=== PATIENT | male | born 1985 | race Caucasian/White ===

== ENCOUNTER 2022-05-13 04:43 | Emergency (ER) | payer SELFPAY ==
[~2022-05-13] VITALS: Ht 175.3 cm; Wt 93.0 kg
--- NOTE | 2022-05-13 05:11 | NUR ---
pt in room 4b c/o wound to forehead.
[2022-05-13] MEDS ORDERED: ACETAMINOPHEN 325 MG TABLET ONE (05:33)
[2022-05-13] MEDS ORDERED: IBUP-1955 PO (05:39)
--- NOTE | 2022-05-13 05:43 | NUR ---
Patient discharged to home in stable condition. Written and verbal after care instructions given. Patient verbalizes understanding of instructions. Stressed follow up or return to ER for worsening s/s.
[2022-05-13] MEDS ORDERED: ACETAMINOPHEN 325 MG TABLET PO ONE (05:45)
[2022-05-13 05:47] VITALS: BP 120/80
== END 2022-05-13 05:47 | disposition home or self-care (01) ==
LOC: ER 04:55
DX: L02.01 Cutaneous abscess of face (principal); L03.211 Cellulitis of face; Z59.00 Homelessness unspecified; F17.210 Nicotine dependence, cigarettes, uncomplicated; F15.10 Other stimulant abuse, uncomplicated
CPT/HCPCS: 87070; 87077; A4663